=== PATIENT | female | born 1965 | race African-American/Black ===

== ENCOUNTER 2017-12-24 17:07 | Emergency (ER) | payer OTHER | END 2017-12-24 18:55 | disposition home or self-care (01) | LOC: FTE 17:07 | DX: M54.5 Low back pain (principal) | CPT/HCPCS: 99283 ==

== ENCOUNTER 2018-11-02 01:19 | Emergency (ER) | payer OTHER ==
[2018-11-02] MEDS: LORAZEPAM 1 MG TAB PO (01:45)
[2018-11-02] MEDS: ASPIRIN 325 MG TAB PO (01:49)
== END 2018-11-02 02:23 | disposition home or self-care (01) ==
LOC: FTE 01:19
DX: F41.9 Anxiety disorder, unspecified (principal); F43.9 Reaction to severe stress, unspecified
CPT/HCPCS: 93005; 99283-25